=== PATIENT | male | born 1960 | race American Indian/Alaskan Native ===

== ENCOUNTER 2018-03-01 15:08 | Emergency (ER) | payer OTHER ==
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
[2018-03-01 19:56] VITALS: BP 140/83
== END 2018-03-01 19:55 | disposition home or self-care (01) ==
LOC: ED 15:08
DX: M79.632 Pain in left forearm (principal); M54.2 Cervicalgia; E03.9 Hypothyroidism, unspecified; F17.200 Nicotine dependence, unspecified, uncomplicated; V49.49XA Driver injured in collision with other motor vehicles in traffic accident, initial encounter; Y93.89 Activity, other specified; Y92.89 Other specified places as the place of occurrence of the external cause; Y99.8 Other external cause status
CPT/HCPCS: 72125